=== PATIENT | female | born 1990 | race Hispanic/Latino ===

== ENCOUNTER 2023-10-07 09:07 | Emergency (ER) | payer SELFPAY ==
[2023-10-07] MEDS ORDERED: NA CHLORIDE 0.9% 100 ML ONE (09:44)
[2023-10-07] MEDS ORDERED: ONDANSETRON 4 MG/2 ML VIAL ONE (10:17)
[2023-10-07] MEDS ORDERED: MORPHINE 4 MG/ML SYR ONE (10:18)
[2023-10-07] MEDS ORDERED: FLUORESCEIN SODIUM 1 MG/WRAP ONE (11:51)
[2023-10-07] MEDS ORDERED: LORazepam 2 MG/ML VIAL ONE (12:02)
[2023-10-07] MEDS ORDERED: KETOROLAC 30 MG/ML INJ ONE (13:24)
--- NOTE | 2023-10-07 13:41 | EDPHYS ---
Physician Documentation [facility] Name: Joann Stanton Age: 32 yrs Sex: Female : 1990 Arrival Date: 10/07/2023 Time: 09:07 Bed 15 Private MD: Louis Moss HPI: 10/06 09:21 This 32 yrs old Female presents to ER via Unassigned with complaints of Eye Problem. sb4 09:23 The patient is experiencing burning, pain, redness, tearing, to both eyes, caused by sb4 benzoyl peroxide. 09:24 Onset: The symptoms/episode began/occurred last night. Duration: the symptoms are sb4 continuous. Aggravated by opening eye, Alleviated by nothing. Associated signs and symptoms: Pertinent negatives: chills, dizziness, ear ache, fever, headache, runny nose. Patient does not utilize any form of vision correction. 12:07 patient put Acne cream, benzoyl peroxide, on her face for the event last night. Woke up sb4 with pain in both of her eyes, presumed to be caused by the acne cream and put carrot juice in both of her eyes to try and alleviate the pain. Shortly after started experience worse pain. 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 - Infectious Disease History:: Denies. - Social history:: Smoking status: Patient denies any tobacco usage or history of. ROS: 09:53 Constitutional: Negative for fever, chills, and weight loss, sb4 09:53 Eyes: Positive for foreign body sensation, pain, redness, tearing, 09:53 All other systems are negative, Exam: 10:01 Constitutional: The patient appears alert, awake, in obvious pain, uncomfortable, sb4 10:01 Eyes: Pupils: equal, round, and reactive to light and accomodation, Extraocular movements: intact throughout, Conjunctiva: injected, bilaterally, tearing noted, bilaterally, Lids and lashes: appear normal, 11:58 Visual Acuity: The patient's visual acuity was not tested, because the patient was not sb4 able to be examined, 12:05 Eyes: pH = 7.5 both eyes. sb4 12:28 Eyes: Intraocular pressure: is normal, sb4 13:44 Head/Face: Normocephalic, atraumatic. sb4 Vital Signs: 09:12 BP 129 / 85; Pulse 81; Resp 18; Temp 98.2(O); Pulse Ox 100% on R/A; Weight 72.57 kg; nj1 Height 5 ft. 4 in. ; Pain 10/10; 10:28 BP 118 / 79; Pulse 88; Resp 18; Pulse Ox 99% on R/A; ph 12:00 BP 116 / 78; Pulse 66; Resp 18; Pulse Ox 100% ; cp4 13:41 BP 119 / 67; Pulse 69; Resp 16; Pulse Ox 100% on R/A; me1 09:12 Body Mass Index 27.46 (72.57 kg, 162.56 cm) nj1 09:12 Pain Scale: Adult nj1 Visual Acuity: 13:20 Left Eye React To Light, Reactive To Accomodation; Right Eye Visual acuity 20/100, me1 React To Light, Reactive To Accomodation; Both Eyes Visual acuity 20/100; Without Lenses; c/o sensitivity to light. Procedures: 12:28 Eye Exam: tetracaine and fluroscein applied to both eyes, no corneal abrasion sb4 appreciated. MDM: 09:11 Patient medically screened. sb4 13:44 Data reviewed: vital signs, nurses notes, I have discussed the patient's sb4 presentation/case with the attending Emergency Department Physician; and as a result, I will discharge patient. Management of patient was discussed with the following: Health Care Social Worker: Dr. Dasilva, recommended erythromycin ointment and follow up with him in 2 days. Counseling: I had a detailed discussion with the patient and/or guardian regarding the historical points, exam findings, and any diagnostic results supporting the discharge/admit diagnosis, the need for outpatient follow up, an opthalmologist, to return to the emergency department if symptoms worsen or persist or if there are any questions or concerns that arise at home. 10/06 09:18 Order name: [facility]. Order: bilateral eye irrigation with lucero lens; Complete Time: 10:24sb4 10/06 11:12 Order name: Visual Acuity; Complete Time: 13:20 sb4 10/06 11:50 Order name: Fluoresene Opth strip; Complete Time: 11:57 sb4 Administered Medications: 09:20 CANCELLED (Physician Discretion): morphine4 mg IM once sb4 09:21 CANCELLED (Physician Discretion): Ondansetron Oral Disintegrating Tablet 4 mg PO once sb4 10:23 Drug: morphine IM 4 mg IM once Route: IM; Site: right ventrogluteal; cp4 13:28 Follow up: Response: No adverse reaction; Pain is unchanged, physician notified me1 10:28 CANCELLED (Other Intervention Used): Ondansetron Oral Disintegrating Tablet 4 mg PO oncesb4 10:31 Drug: Zofran IM 4 mg IM once Route: IM; Site: right ventrogluteal; sb4 13:28 Follow up: Response: No adverse reaction; Nausea is decreased me1 12:06 Drug: LORazepam IM 1 mg IM once Route: IM; Site: right deltoid; cp4 13:28 Follow up: Response: No adverse reaction; Anxiety decreased me1 13:28 Drug: Ketorolac IM 30 mg IM once Route: IM; Site: left deltoid; me1 13:40 Follow up: Response: No adverse reaction me1 13:45 Drug: ERYTHromycin Ophthalmic Ointment 1 application Ophthalmic once Route: Ophthalmic; me1 Site: both eyes; 13:46 Follow up: Response: No adverse reaction me1 Disposition Summary: 10/07/23 13:41 Discharge Ordered Notes: Location: Home sb4 Problem: new sb4 Symptoms: have improved sb4 Condition: Stable sb4 Diagnosis - Injury of conjunctiva and corneal abrasion without foreign body sb4 Followup: sb4 - With: Desmond Dasilva MD - When: 2 - 3 days - Reason: Recheck today's complaints, Re-evaluation by your physician Discharge Instructions: - Discharge Summary Sheet sb4 - Corneal Abrasion, [id number] sb4 Forms: - Patient Portal Instructions sb4 - Leadership Thank You Letter sb4 Prescriptions: - Erythromycin 5 mg/gram (0.5 %) Ophthalmic ointment - apply 1 ribbon OPHTHALMIC route every 8 hours; 1 unit; Refills: 0, Product sb4 Selection Permitted Signatures: Tricia Chappell RN RN Essence Mayorga PA-C PA-C sb4 Denisha Garcia RN RN nj1 Ambar Stark RN RN me1 Lindsey Diaz cp4 Corrections: (The following items were deleted from the chart) 09:20 09:18 morphine IM 4 mg IM once ordered. sb4 sb4 09: 09:18 Ondansetron Oral Disintegrating Tablet Oral Disintegrating Tablet 4 mg PO once sb4 ordered. sb4 09:25 09:23 The patient is experiencing burning, pain, redness, tearing, to both eyes, caused sb4 by benzyl peroxide, sb4 10: 10:16 Ondansetron Oral Disintegrating Tablet Oral Disintegrating Tablet 4 mg PO once sb4 ordered. sb4 10: 10:23 Ondansetron Oral Disintegrating Tablet Oral Disintegrating Tablet 4 mg PO once sb4 given. cp4 10: 10:28 Ondansetron Oral Disintegrating Tablet Oral Disintegrating Tablet 4 mg PO once sb4 ordered. cp4 12:30 12:08 Special observations: sb4 sb4 12: 12:28 Eyes: a slit lamp exam was employed for the exam, Intraocular pressure: is sb4 normal, sb4
--- NOTE | 2023-10-07 13:41 | ER ---
Nurse's Notes [facility] Name: Joann Stanton Age: 32 yrs Sex: Female : 1990 Arrival Date: 10/07/2023 Time: 09:07 Bed 15 Private MD: Diagnosis: Injury of conjunctiva and corneal abrasion without foreign body Presentation: 10/06 09:12 Chief complaint: Patient states: States she woke up at around 4am and her vision was nj1 blurry, put some carrot juice in her eyes, went to sleep and when she woke up she couldn't open her eyes and they were burning. Has put some spot acne cream all over her face at midnight last night. 09:12 Coronavirus screen: Vaccine status: Patient reports receiving the 2nd dose of the covid nj1 vaccine. Ebola Screen: Patient denies travel to an Ebola-affected area in the 21 days before illness onset. Initial Sepsis Screen: Does the patient meet any 2 criteria? No. Patient's initial sepsis screen is negative. Does the patient have a suspected source of infection? No. Patient's initial sepsis screen is negative. Risk Assessment: Do you want to hurt yourself or someone else? Patient reports no desire to harm self or others. Onset of symptoms was October 07, 2023. 09:12 Method Of Arrival: Wheelchair 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 - Infectious Disease History:: Denies. - Social history:: Smoking status: Patient denies any tobacco usage or history of. Screenin:26 [facility] ED Fall Risk Assessment (Adult) History of falling in the last 3 months, ph including since admission No falls in past 3 months (0 pts) Confusion or Disorientation No (0 pts) Intoxicated or Sedated No (0 pts) Impaired Gait No (0 pts) Mobility Assist Device Used No (0 pt) Altered Elimination No (0 pt) Score/Fall Risk Level 0 - 2 = Low Risk Oriented to surroundings, Maintained a safe environment, Hourly rounding (assess needs \T\ fall precautionary measures) done. Abuse screen: Denies threats or abuse. Denies injuries from another. Nutritional screening: No deficits noted. Tuberculosis screening: No symptoms or risk factors identified. Assessment: 10:26 General: Appears in no apparent distress. uncomfortable, Behavior is cooperative, ph appropriate for age, anxious. Pain: Complains of pain in right eye and left eye. Neuro: Level of Consciousness is awake, alert, obeys commands, Oriented to person, place, time, situation. Cardiovascular: Capillary refill < 3 seconds in bilateral fingers Patient's skin is warm and dry. Respiratory: Airway is patent Respiratory effort is even, unlabored. 12:05 General: Appears uncomfortable, well groomed, well developed, well nourished, Behavior me1 is cooperative, appropriate for age, anxious. Pain: Complains of pain in left eye and right eye Pain does not radiate. Pain currently is 10 out of 10 on a pain scale. Quality of pain is described as stinging, Pain began suddenly, Is continuous. Neuro: Level of Consciousness is awake, alert, obeys commands, Oriented to person, place, time, situation, Appropriate for age. Cardiovascular: Capillary refill < 3 seconds Patient's skin is warm and dry. Respiratory: Airway is patent Respiratory effort is even, unlabored, Respiratory pattern is regular, symmetrical. GI: No signs and/or symptoms were reported involving the gastrointestinal system. : No signs and/or symptoms were reported regarding the genitourinary system. EENT: Reports pain in left eye and right eye. Derm: Skin is intact, is healthy with good turgor, Skin is pink, warm \T\ dry. Musculoskeletal: No signs and/or symptoms reported regarding the musculoskeletal system. Vital Signs: 09:12 BP 129 / 85; Pulse 81; Resp 18; Temp 98.2(O); Pulse Ox 100% on R/A; Weight 72.57 kg; nj1 Height 5 ft. 4 in. ; Pain 10/10; 10:28 BP 118 / 79; Pulse 88; Resp 18; Pulse Ox 99% on R/A; ph 12:00 BP 116 / 78; Pulse 66; Resp 18; Pulse Ox 100% ; cp4 13:41 BP 119 / 67; Pulse 69; Resp 16; Pulse Ox 100% on R/A; me1 09:12 Body Mass Index 27.46 (72.57 kg, 162.56 cm) nj1 09:12 Pain Scale: Adult nj1 Visual Acuity: 13:20 Left Eye React To Light, Reactive To Accomodation; Right Eye Visual acuity 20/100, me1 React To Light, Reactive To Accomodation; Both Eyes Visual acuity 20/100; Without Lenses; c/o sensitivity to light. ED Course: 09:11 Patient arrived in ED. ra3 09:11 Essence Moya PA-C is PHCP. sb4 09:11 Louis Hill MD is Attending Physician. sb4 09:11 Arm band placed on Patient placed in an exam room, on a stretcher. ll1 09:23 Tricia Chappell, RN is Primary Nurse. ph 09:27 Triage completed. nj1 10:24 Eye irrigation of both eyes w/ Thanh lens IV tubing with 50 mL per eye normal saline, ph Patient tolerated poorly. 10:27 Patient has correct armband on for positive identification. Bed in low position. Call ph light in reach. Pulse ox on. NIBP on. Door closed. Noise minimized. Warm blanket given. 10:29 Patient did not have IV access during this emergency room visit. ph 13:40 Desmond Dasilva MD is Referral Physician. sb4 13:53 Provided Education on: POC. Verbalized understanding. . me1 13:53 No provider procedures requiring assistance completed. me1 Administered Medications: 09:20 CANCELLED (Physician Discretion): morphine4 mg IM once sb4 09:21 CANCELLED (Physician Discretion): Ondansetron Oral Disintegrating Tablet 4 mg PO once sb4 10:23 Drug: morphine IM 4 mg IM once Route: IM; Site: right ventrogluteal; cp4 13:28 Follow up: Response: No adverse reaction; Pain is unchanged, physician notified me1 10:28 CANCELLED (Other Intervention Used): Ondansetron Oral Disintegrating Tablet 4 mg PO oncesb4 10:31 Drug: Zofran IM 4 mg IM once Route: IM; Site: right ventrogluteal; sb4 13:28 Follow up: Response: No adverse reaction; Nausea is decreased me1 12:06 Drug: LORazepam IM 1 mg IM once Route: IM; Site: right deltoid; cp4 13:28 Follow up: Response: No adverse reaction; Anxiety decreased me1 13:28 Drug: Ketorolac IM 30 mg IM once Route: IM; Site: left deltoid; me1 13:40 Follow up: Response: No adverse reaction me1 13:45 Drug: ERYTHromycin Ophthalmic Ointment 1 application Ophthalmic once Route: Ophthalmic; me1 Site: both eyes; 13:46 Follow up: Response: No adverse reaction me1 Medication: 10:27 VIS not applicable for this client. ph Outcome: 13:41 Discharge ordered by . sb4 13:53 Discharged to home ambulatory, with significant other, me1 13:53 Condition: stable 13:53 Discharge instructions given to patient, significant other, Instructed on discharge instructions, follow up and referral plans. medication usage, Demonstrated understanding of instructions, follow-up care, medications, Prescriptions given X 1, 13:56 Patient left the ED. me1 Signatures: Tricia Chappell RN RN Tiffani Houser RN RN ll1 Essence Moya, PA-C PA-C sb4 Denisha Garcia RN RN sd1 Ambar Stark RN RN wa1 Lindsey Diaz cp4 Maria Elena Montilla ra3 Corrections: (The following items were deleted from the chart) 10:28 10:23 Ondansetron Oral Disintegrating Tablet Oral Disintegrating Tablet 4 mg PO cp4 cp4 13:22 13:20 Right Eye Without Lenses, 20/100, React To Light, Reactive To Accomodation, Left me1 Eye Without Lenses,, React To Light, Reactive To Accomodation, Both Eyes Without Lenses, 20/100 me1
[2023-10-07] MEDS ORDERED: ERYTHROMYCIN 3.5GM OPTH OINT ONE (13:44)
[2023-10-07 14:12] VITALS: BP 119/67; TEMP 98.2; O2SAT 100
== END 2023-10-07 13:56 | disposition home or self-care (01) ==
LOC: ER 09:07
DX: S05.02XA Injury of conjunctiva and corneal abrasion without foreign body, left eye, initial encounter (principal); S05.01XA Injury of conjunctiva and corneal abrasion without foreign body, right eye, initial encounter
CPT/HCPCS: 96372; 99284; J2405